=== PATIENT | male | born 1940 | race Asian ===

== ENCOUNTER → 2018-01-31 | Outpatient (CLI) | payer MEDICARE, OTHER ==
[~2018-01-31] MED LIST: APIX5TAB PO; ASCO500 PO; ASPI-1188 PO; BISA5TAB12 PO; CARV3 PO; FINA5TAB41 PO; LISI2.5T2 PO; MULT1TAB70 PO; OMEP20 PO; RANO500T3 PO; SIMV-260 PO; SIMV-261 PO; SPIR25 PO; TAMS0.4C32 PO
[2018-01-31 14:27] VITALS: BP 96/54
== END | disposition home or self-care (01) ==
LOC: SRCNTR 13:50
PROVIDERS: ATTEND Internal Medicine Clinical Cardiac Electrophysiology
DX: Z45.02 Encounter for adjustment and management of automatic implantable cardiac defibrillator (principal); I11.0 Hypertensive heart disease with heart failure; I50.22 Chronic systolic (congestive) heart failure; E11.9 Type 2 diabetes mellitus without complications; Z79.01 Long term (current) use of anticoagulants; Z79.82 Long term (current) use of aspirin; Z86.73 Personal history of transient ischemic attack (TIA), and cerebral infarction without residual deficits
CPT/HCPCS: G0463